=== PATIENT | female | born 1970 | race Caucasian/White ===

== ENCOUNTER 2020-12-11 14:43 | Outpatient (CLI) | payer OTHER, SELFPAY ==
--- NOTE | ~2020-12-11 | MM_ITS ---
EXAMINATION: MM screening [facility] w renee HISTORY: Screening mammogram TECHNIQUE: Craniocaudal and mediolateral oblique 3-D tomosynthesis images were obtained and synthetic 2-D images were generated. CAD analysis was submitted and interpreted. COMPARISON: 11/16/2018 bilateral digital screening mammogram BREAST PARENCHYMAL COMPOSITION: There are scattered areas of fibroglandular density. FINDINGS: There is no evidence of suspicious mass, calcification, or architectural distortion to sugg est malignancy in either breast. There has been no suspicious interval change. IMPRESSION: 1. No mammographic evidence of malignancy. 2. Recommend routine screening mammography in one year. BI-RADS Category 1: Negative Reviewed, dictated and finalized at location A. [employer] IN[employer]ER
== END 2020-12-11 14:44 | disposition home or self-care (01) ==
LOC: ANHIMG 14:46
PROVIDERS: Family Provider Internal Medicine; PCP Internal Medicine; Visit Provider Nurse Practitioner Obstetrics & Gynecology
DX: Z12.31 Encounter for screening mammogram for malignant neoplasm of breast (principal)
CPT/HCPCS: 77063; 77067

== ENCOUNTER → 2021-01-21 11:09 | Outpatient (CLI) | payer OTHER, SELFPAY ==
--- NOTE | ~2021-01-21 | XR_ITS ---
XR elbow LT min 3V DATE: 01/21/2021 11:22 INDICATION: Left elbow pain TECHNIQUE: 4 views COMPARISON: None FINDINGS: No fracture or dislocation or joint effusion. No periosteal reaction or bone destruction. IMPRESSION: No significant abnormality Reviewed, dictated and finalized at location B. IMPRESSION: No significant abnormality
== END ==
PROVIDERS: PCP Internal Medicine; Visit Provider Nurse Practitioner
DX: M25.522 Pain in left elbow (principal)
CPT/HCPCS: 73080

== ENCOUNTER 2022-01-12 10:27 | Outpatient (CLI) | payer OTHER, SELFPAY ==
--- NOTE | ~2022-01-12 | MM_ITS ---
EXAMINATION: MM screening [facility] BI w renee HISTORY: Screening mammogram TECHNIQUE: Craniocaudal and mediolateral oblique 3-D tomosynthesis images were obtained and synthetic 2-D images were generated. CAD analysis was submitted and interpreted. COMPARISON: 12/11/2020, 11/16/2018 BREAST PARENCHYMAL COMPOSITION: There are scattered areas of fibroglandular density. FINDINGS: There is no evidence of suspicious mass, calcification, or architectural distortion to sugg est malignancy in either breast. There has been no suspicious interval change. IMPRESSION: 1. No mammographic evidence of malignancy. 2. Recommend routine screening mammography in one year. BI-RADS Category 1: Negative Reviewed, dictated and finalized at location A.
== END 2022-01-12 10:28 | disposition home or self-care (01) ==
LOC: ANHIMG 10:28
PROVIDERS: PCP Internal Medicine; Visit Provider Nurse Practitioner Obstetrics & Gynecology
DX: Z12.31 Encounter for screening mammogram for malignant neoplasm of breast (principal)
CPT/HCPCS: 77063; 77067

== ENCOUNTER 2024-04-21 14:33 | Outpatient (CLI) | payer OTHER, SELFPAY ==
--- NOTE | ~2024-04-21 | XR_ITS ---
EXAMINATION: XR thoracic spine 2V DATE: 04/21/2024 14:53 INDICATION: Dorsalgia, unspecified. Upper back pain. Neck pain. TECHNIQUE: 2 views of the thoracic spine standing were obtained. COMPARISON: None. FINDINGS: There is 7 degrees levocurvature of thoracic spine. Vertebral body heights are normal. Inte rvertebral disc heights are normal. There are endplate osteophytes at multiple levels. IMPRESSION: 1. Mild thoracic spondylosis. Reviewed, dictated and finalized at location E.
--- NOTE | ~2024-04-21 | XR_ITS ---
EXAMINATION: XR_CERV2-3V_CR DATE: 04/21/2024 14:53 INDICATION: Dorsalgia, unspecified. Neck pain. TECHNIQUE: 2 views of cervical spine were obtained. COMPARISON: None. FINDINGS: There is kyphosis of cervical spine. Vertebral body heights are normal. There is mildly dec reased disc height at C4-C5 and moderately decreased disc height at C5-C6 and C6-C7. There is multile muna uncovertebral joint osteoarthritis, severe on the left at C5-C6 and C6-C7. There is multilevel mi ld facet joint osteoarthritis. There is mild central canal stenosis at C5-C6 and C6-C7. No prevertebr al soft tissue swelling. IMPRESSION: 1. Moderate cervical spondylosis. Reviewed, dictated and finalized at location E.
== END 2024-04-21 14:34 ==
PROVIDERS: PCP Nurse Practitioner Family; Visit Provider Nurse Practitioner Family
DX: M47.894 Other spondylosis, thoracic region (principal); M47.892 Other spondylosis, cervical region
CPT/HCPCS: 72040; 72070

== ENCOUNTER 2024-05-03 10:47 | Outpatient (CLI) | payer OTHER, SELFPAY ==
--- NOTE | ~2024-05-03 | XR_ITS ---
EXAMINATION: XR shoulder LT min 2V DATE: 05/03/2024 10:59 INDICATION: Pain in unspecified shoulder. TECHNIQUE: 4 views of left shoulder were obtained. COMPARISON: None. FINDINGS: Bone alignment is normal. No fracture. Glenohumeral joint is normal. There is severe acromi oclavicular joint osteoarthritis. IMPRESSION: 1. Severe left acromioclavicular joint osteoarthritis. Reviewed, dictated and finalized at location A.
== END 2024-05-03 10:48 ==
LOC: MICIMG 10:48
PROVIDERS: PCP Nurse Practitioner Family; Visit Provider Nurse Practitioner Family
DX: M19.012 Primary osteoarthritis, left shoulder (principal)
CPT/HCPCS: 73030

== ENCOUNTER 2024-05-26 14:22 | Outpatient (RCR) | payer OTHER, SELFPAY ==
--- NOTE | 2024-05-26 16:12 | PTOPEVAL1 ---
Assessment and note entered by Radha Maldonado, PT Evaluation Information Assessment Status Evaluation Onset 3 months ago Subjective Information Pt reports increased pain, tingling sensation and numbness with certain movements of the shoulder. Difficulty lifting objects overhead and pulling due to the discomfort, she uses heating pad, Icing and Aleve to relieve symptoms. It is more pronounced at the end of the day when it feels sore as well. She wants to achieve relief of the pinch nerve symptoms and improve her strength. Due to her work schedule, pt is only able to attend 1x/wk at this time and requested education for HEPs and agreeable to undergo treatments using appropriate modalities, manual therapy and Dry Needling during her sessions. 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 X-rays demo Severe left acromioclavicular joint osteoarthritis, Mild thoracic spondylosis, Moderate cervical spondylosis. She will benefit from skilled PT to improve cervical mobility, B shoulder stability to allow improved functional movement. Plan of Care Interventions Electrical Stimulation,Hot Pack/Cold Pack,Manual Therapy,Mechanical Traction,Neuro Re-education, Patient/Caregiver Education,Therapeutic Activities, Therapeutic Exercise,Ultrasound Other Interventions IASTM, Dry Needling PT Services Indicated Yes Treatment Frequency and 1x/wk x 6 visits Duration These treatments will address the objective and functional deficits as defined above. The patient will be advanced safely and appropriately in order for the patient to progress towards his/her prior level of function. Additional exercises will be introduced and as well as a comprehensive home exercise program upon discharge, if needed, ?to ensure carryover of functional gains achieved in the clinic. This treatment plan has been reviewed and agreement upon by the patient.
--- NOTE | 2024-06-30 16:00 | PTOPDC ---
Assessment and note entered by Smita Martin, PT Discharge Report Assessment Status Discharge - Pt Not Present Diagnosis M47.22 Onset 3 months ago Subjective Information pt was not seen this date. Assessment PT Clinical Summary Sheryl has received the PT evaluation on May 26. She called today and stated she is not able to attend PT due to work. Discharge PT. The goals were not addressed. Plan of Care PT Services Indicated No
== END 2024-08-09 14:12 | disposition home or self-care (01) ==
LOC: ANHPT 14:22
PROVIDERS: PCP Nurse Practitioner Family; Visit Provider Nurse Practitioner Family
DX: M47.22 Other spondylosis with radiculopathy, cervical region (principal)
CPT/HCPCS: 97035; 97110; 97161

== ENCOUNTER 2024-07-05 09:59 | Outpatient (CLI) | payer OTHER, SELFPAY ==
--- NOTE | ~2024-07-05 | MR_ITS ---
MRI of the cervical spine Clinical History: Spondylosis Technique: Axial T2-weighted and gradient images, and sagittal T1-weighted, T2-weighted, and STIR brayden ges were acquired. Findings: There is straightening of normal cervical lordosis. No fracture or subluxation seen. Verteb ral bodies maintain normal height and line. No suspicious bone marrow signal abnormality seen. At C2-C3, there is no significant disc bulge or herniation. No spinal canal stenosis, cord compressio n, or neural foraminal narrowing. At C3-C4, there is no disc bulge or herniation. No spinal canal stenosis, cord compression, or neural foraminal narrowing. At C4-C5, there is minimal disc bulge. No spinal canal stenosis, cord compression, or neural foramina l narrowing. At C5-C6, there is mild to moderate degenerative disc narrowing. There is minimal disc bulge. There i s minimal canal stenosis without lata cord compression. There is bilateral neural foraminal narrowin g, left worse than right. At C6-C7, there is moderate degenerative disc narrowing. There is disc osteophyte complex, with minim al canal stenosis but no lata cord compression. There is left neural foraminal narrowing. Right neur al foramen preserved. No abnormal signal seen in the spinal cord. Paravertebral soft tissues are unremarkable. Impression: [id number] degenerative spondylosis at C5-C6 and C6-C7, as detailed above. Reviewed, dictated and finalized at [facility]. Impression: [id number] degenerative spondylosis at C5-C6 and C6-C7, as detailed above .
== END 2024-07-05 10:00 | disposition home or self-care (01) ==
PROVIDERS: PCP Nurse Practitioner Family; Visit Provider Orthopaedic Surgery
DX: M47.22 Other spondylosis with radiculopathy, cervical region (principal)
CPT/HCPCS: 72141